=== PATIENT | male | born 1955 | race Caucasian/White ===

== ENCOUNTER 2019-06-29 17:54 | Emergency (ER) | payer MEDICARE ==
--- NOTE | 2019-06-29 18:57 | EDM.PDOC ---
ED HPI GENERAL MEDICAL PROBLEM - General Chief Complaint: ENT Problem Stated Complaint: TROUBLE STOPPING NOSE BLEED Time Seen by Provider: 06/29/19 18:30 Source of Information: Reports: Patient, Family History Limitations: Reports: No Limitations - History of Present Illness INITIAL COMMENTS - FREE TEXT/NARRATIVE: 64-year-old male with recurring right-sided epistaxis for years, numerous ENT consults, has had a few nosebleeds again and this one was persistent so he came in to be checked. He arrives with an Afrin-soaked cotton ball in his right nares. There is no active hemorrhage. Onset: Sudden Duration: Hour(s): (Bleeding was occurring for just over one hour) Location: Reports: Other (Right nares) Associated Symptoms: Reports: No Other Symptoms Denies Pain Score (Numeric/FACES): 0 - Related Data Allergies Allergy/AdvReac Type Severity Reaction Status Date / Time atenolol Allergy Cannot Verified 06/29/19 18:10 Remember Home Meds: Home Meds Fluticasone Propionate [Flonase] 1 spray TOP DAILY 06/29/19 [History] Lisinopril 1 tab PO DAILY 06/29/19 [History] atorvaSTATin [Lipitor] 0.5 tab PO DAILY 06/29/19 [History] Past Medical History HEENT History: Reports: Impaired Vision, Other (See Below) Other HEENT History: frequent nose bleeds Cardiovascular History: Reports: High Cholesterol, Hypertension, Other (See Below) Other Cardiovascular History: dilated assending aorta Dermatologic History: Reports: Eczema, Psoriasis - Infectious Disease History Infectious Disease History: Reports: Chicken Pox, Measles, Mumps - Past Surgical History GI Surgical History: Reports: Colonoscopy Social & Family History - Tobacco Use Smoking Status *Q: Former Smoker Years of Tobacco use: 10 Packs/Tins Daily: 0.5 Used Tobacco, but Quit: Yes Month/Year Tobacco Last Used: 1998 Second Hand Smoke Exposure: No - Caffeine Use Caffeine Use: Reports: Coffee, Soda - Alcohol Use Days Per Week of Alcohol Use: 1 Number of Drinks Per Day: 2 Total Drinks Per Week: 2 - Recreational Drug Use Recreational Drug Use: No ED ROS ENT - Review of Systems Review Of Systems: See Below Constitutional: Denies: Fever, Chills Respiratory: Denies: Shortness of Breath, Cough Cardiovascular: Denies: Chest Pain GI/Abdominal: Denies: Nausea, Vomiting ED EXAM, ENT - Physical Exam Exam: See Below Exam Limited By: No Limitations General Appearance: Alert, No Apparent Distress Nose: Other (After the packing was removed there was a small amount of dried blood in the right nares but no active bleeding, throat was clear) Mouth/Throat: Normal Inspection Head: Atraumatic Course - Vital Signs Last Recorded V/S: Last Vital Signs Temp 98.3 F 06/29/19 18:20 Pulse 67 06/29/19 18:20 Resp 16 06/29/19 18:20 BP 138/69 06/29/19 18:20 Pulse Ox 97 06/29/19 18:20 - Re-Assessments/Exams Free Text/Narrative Re-Assessment/Exam: 06/29/19 18:56 We watch the patient for 20-30 minutes and there was no active bleeding. No treatment was needed. He'll return if bleeding recurs. Departure - Departure Time of Disposition: 19:04 Disposition: Home, Self-Care 01 Condition: Good Clinical Impression: Right-sided nosebleed - Discharge Information Instructions: Nosebleed, [id number] Referrals: Hiwot Mchugh PA-C [Primary Care Provider] - Forms: ED Department Discharge Care Plan Goals: Continue conservative treatment such as keeping the nose moist, and pressure and Afrin if bleeding recurs. Return anytime if bleeding is persistent. Consider an ENT consult in the near future.
== END 2019-06-29 19:04 | disposition home or self-care (01) ==
LOC: JP.ED 17:54
DX: R04.0 Epistaxis (principal); Z88.8 Allergy status to other drugs, medicaments and biological substances; Z79.899 Other long term (current) drug therapy; Z87.891 Personal history of nicotine dependence
CPT/HCPCS: 99281; 99283

== ENCOUNTER 2020-09-11 08:12 | Day surgery (SDC) | payer MEDICARE ==
[2020-09-11] MEDS ORDERED: Dextrose 5%-Lactated Ringers 1,000 ML IV SCH (08:45)
[2020-09-11] MEDS ORDERED: Propofol 200 MG/20 ML SDV ONE (10:09)
[2020-09-11] MEDS ORDERED: Midazolam 1 MG/ML 2 ML SDV ONE (10:09)
[2020-09-11] MEDS ORDERED: fentaNYL 100 MCG/2 ML SDV ONE (10:09)
--- NOTE | 2020-09-23 11:53 | OR ---
DATE OF PROCEDURE: 09/11/2020 SURGEON: Fer Cronin MD PREOPERATIVE DIAGNOSIS: History of colon polyps. POSTOPERATIVE DIAGNOSIS: Normal colonoscopic examination. OPERATIVE PROCEDURE: Flexible colonoscopy. ANESTHESIA: IV sedation. INDICATION FOR PROCEDURE: The patient presents for followup colonoscopy, does have a history of colon polyps in the past. The plan is to proceed with colonoscopy with biopsies and/or polypectomy as indicated. Potential risks including bleeding and perforation were discussed and the patient wishes to proceed. DETAILS OF PROCEDURE: The patient was taken to the operating room and placed in a left lateral decubitus position. IV sedation was administered after which the initial digital rectal exam was performed and was unremarkable. The colonoscope was then passed into the rectum with retroflexion revealing uncomplicated hemorrhoidal columns. The scope was eventually passed to the cecum. To that level, the overall prep was quite good with only a small amount of liquid stool present. No diverticula, no areas of colitis, no recurrent polyps or other signs of neoplasia were identified. The scope was then withdrawn, the above findings reconfirmed, and the procedure concluded. The patient was taken to the recovery room in satisfactory condition. Given the patient's history, the next colonoscopy should be in 5 years. Fer Cronin MD /[id number]
== END 2020-09-11 11:48 | disposition home or self-care (01) ==
LOC: JP.SDS 08:12
PROVIDERS: ATTEND Surgery
DX: Z12.11 Encounter for screening for malignant neoplasm of colon (principal); I10 Essential (primary) hypertension; Z88.8 Allergy status to other drugs, medicaments and biological substances
CPT/HCPCS: G0105; J2250; J2704; J3010; J7121